=== PATIENT | male | born 1985 | race Caucasian/White ===

== ENCOUNTER 2020-10-05 00:38 | Inpatient (IN) ==
[2020-10-05] MEDS ORDERED: SODIUM CHLORIDE 0.9% 1000ML 1,000 ML IV STA (00:53)
[2020-10-05] MEDS ORDERED: PIPERACILL/TAZOBAC CONSULT ACTIVE PRN (01:05)
[2020-10-05] MEDS ORDERED: PIPERACILLIN/TAZOBACTAM 4.5 GM/120 ML BAG IV ONE (01:05)
[2020-10-05] MEDS ORDERED: ONDANSETRON INJ 2 MG/ML 2 ML VIAL IV STA (01:12)
[2020-10-05] MEDS ORDERED: SODIUM CHLORIDE 0.9% 1000ML 1,000 ML IV ONE (01:12)
--- NOTE | 2020-10-05 01:16 | Emergency Department Note ---
Impression & Plan Colonic diverticular abscess ED Provider Note Pain.NAME: JAMES HODGSON AGE: 35 SEX: M : 1985 ARRIVES VIA: Walk-In INFORMANT: Patient, ED PROVIDER(S): Luis Giordano DO CHIEF COMPLAINT: Abdominal pain HPI: The patient is a 35-year-old male who presented to the emergency department for an evaluation of abdominal pain. The patient has a history of GERD as well as diverticulosis. He was seen in our facility yesterday for similar complaints. At that time he was diagnosed with diverticulitis and was started on Cipro and Flagyl. He is also been taking pain medication. The over read from his preliminary CAT scan revealed signs of a diverticular abscess. They had difficulty contacting the patient and ultimately he was asked to come back to the emergency department. He states that he has had chills but no fevers. H e has worsening pain especially with ambulation as well as palpation over the lower abdomen. The patient has had no diarrhea or rectal bleeding. He has had no vomiting. He has been taking his antibiotic as prescribed. He had an episode of diverticulitis 1 month ago. He states he does not normally have diverticulitis is soon after a bout of diverticulitis so he was concerned about this episode. ROS: See above HPI for pertinent positives & negatives. A total of 10 systems reviewed and were otherwise negative. PAST MEDICAL HISTORY: See Below PAST SURGICAL HISTORY: See Below FAMILY HISTORY: See Below SOCIAL HISTORY: See Below HOME MEDICATIONS: See Below ALLERGIES: See Below VITALS: See Below PHYSICAL EXAMINATION: GENERAL: Patient is awake alert in no acute distress patient is resting comfortably and showing no signs of anxiety EYES: The conjunctivae are clear. The pupils are round and reactive. EARS, NOSE, MOUTH AND THROAT: The nose is without any evidence of any deformity. Mucous membranes are moist. Tongue is midline. NECK: The neck is nontender and supple. RESPIRATORY: Normal respiratory effort is noted there is no evidence of wheezing rhonchi or rales CARDIOVASCULAR: Regular rate and rhythm noted there no murmurs rubs or gallops normal S1 normal S2. GASTROINTESTINAL: The abdomen is mildly distended. There is diffuse tenderness to palpation. There is no specific rigidity or guarding but there is significant tenderness in the left lower quadrant. MUSCULOSKELETAL/EXTREMITIES: There is no evidence of gross deformity full range of motion is noted in the hips and shoulders. SKIN: There is no obvious evidence of any rash. There are no petechiae, pallor or cyanosis noted. NEUROLOGIC: Patient is awake alert and oriented x3. MEDICAL DECISION MAKING: The patient is a 35-year-old male who presented to the emergency department for an evaluation the patient was seen in our facility for similar complaints last evening. At that time his preliminary CAT scan showed only signs of diverticulitis. He was started on Cipro and Flagyl. He was also treated with pain medication in the emergency department. He was feeling somewhat better but had continued pain. He was called to come back to the emergency department because of a diverticular abscess which was noted on over read of the CAT scan of the abdomen and pelvis. The patient was treated with IV fluids and IV pain medication. He was also given IV antibiotics in the emergency department. I discussed the patient's laboratory and radiographic studies with him. His white blood cell count had improved compared to last evening. Given the patient's finding on CAT scan I will discuss his case with the on-call [facility] hospitalist. Triage Nursing notes reviewed. Prior medical records reviewed Vital Signs: reviewed and remarkable for no significant abnormalities Differential diagnosis: Etiologies such as appendicitis, diverticulitis, obstruction, inflammatory bowel disease, renal colic, PUD, biliary pathology, pancreatitis, mesenteric ischemia, aortic pathology, infections, genitourinary, UTI, perforated viscus, as well as others were entertained. ER treatment provided: See below Diagnostics interpreted by me: ECG: none Cardiac Monitoring: An order was placed for continuous cardiac monitoring. The monitor shows a rate of 82 bpm with sinus rhythm. Laboratory studies: As stated above and show below. Imaging studies: See below Consultation(s): Dr. Real was notified about the patient in the emergency department. Past Med/Surg History Medical History Diverticulitis Diverticulosis Social History Smoking Status: Current every day smoker Tobacco Type: Cigarettes Preferred Language: Djiboutian Feels Safe at Home: Yes Allergies Allergies Allergy/AdvReac Type Severity Reaction Status Date / Time bee venom protein (honey bee) Allergy Unknown __ Verified 10/05/20 01:20 Home Meds Home Medications Medication Instructions Recorded Confirmed omeprazole [Prilosec] 20 mg PO DAILY 10/03/20 10/05/20 Previous Rx's Medication Instructions Recorded ciprofloxacin HCl [Cipro] 500 mg PO BID #18 tab 10/03/20 metronidazole 500 mg PO TID #28 tab 10/03/20 Results & Data (ED) Vital Signs Vital Signs - 24 hr 10/05/20 00:48 10/05/20 01:35 10/05/20 01:37 Temperature 36.4 C L Temperature Source Temporal Artery Scan Pulse Rate 97 H 91 H 82 Pulse Rate from SpO2 Sensor 89 84 Respiratory Rate 18 12 24 Respiratory Depth Normal Blood Pressure 138/90 119/80 Blood Pressure Mean 106 93 Pulse Oximetry 97 97 97 Oxygen Delivery Method Room Air Room Air Room Air Sepsis Recent Fever Within 48 Hours No Sepsis New/Unexplained Change in Mental Status N/A Sepsis Action Taken by Nursing No Action Required Home Medications Current Medication List: was personally reviewed by me Laboratory Data Attestation: I reviewed the patient's lab results. Result diagrams: 10/05/20 00:54 10/05/20 00:54 Lab Results 10/05/20 10/05/20 10/05/20 Range/Units 00:54 00:54 01:36 WBC 12.16 H (4.8-10.8) K/uL RBC 5.01 (4.7-6.1) M/uL Hgb 16.1 (14.0-18.0) g/dL Hct 45.5 (42-52) % MCV 90.8 (80-100) fL MCH 32.1 (25-34) pg MCHC 35.4 (32-36) g/dL RDW Std Deviation 46.5 H (36.4-46.3) fL RDW Coeff of Rachel 14.0 (11.5-14.5) % Plt Count 162 (130-400) K/uL MPV 10.8 H (7.4-10.4) fL Immature Gran % (Auto) 0.2 % Neut % (Auto) 74.4 % Lymph % (Auto) 14.3 % [place] % (Auto) 7.8 % Eos % (Auto) 3.1 % Baso % (Auto) 0.2 % Neut # (Auto) 9.04 H (1.4-6.5) K/uL Lymph # (Auto) 1.74 (1.2-3.4) K/uL [place] # (Auto) 0.95 H (0.11-0.59) K/uL Eos # (Auto) 0.38 (0-0.5) K/uL Baso # (Auto) 0.03 (0-0.2) K/uL Immature Gran # (Auto) 0.02 (0.00-0.02) K/uL Sodium 137 (136-145) mmol/L Potassium 3.8 (3.5-5.1) mmol/L Chloride 107 (98-107) mmol/L Carbon Dioxide 24 (21-32) mmol/L Anion Gap 6.0 (3-11) BUN 14 (7-18) mg/dl Creatinine 1.01 (0.6-1.4) mg/dl Est Cr Clr Drug Dosing 124.1 ml/min Est GFR ( Amer) 112.0 ml/min Est GFR (Non-Af Amer) 96.6 ml/min BUN/Creatinine Ratio 13.5 (10-20) Glucose 86 (70-99) mg/dl Calcium 9.3 (8.5-10.1) mg/dl Total Bilirubin 0.7 (0.2-1) mg/dl AST 8 L (15-37) U/L ALT 19 (12-78) U/L Alkaline Phosphatase 72 (45-117) U/L Total Protein 7.5 (6.4-8.2) gm/dl Albumin 3.4 (3.4-5.0) gm/dl Globulin 4.1 H (2.5-4.0) gm/dl Albumin/Globulin Ratio 0.8 L (0.9-2) Lipase 104 (73-393) U/L Urine Color Urine Appearance (Clear) Urine pH (4.5-7.5) Ur Specific Twisp (1.000-1.030) Urine Protein (Negative) Urine Glucose (UA) (Negative) Urine Ketones (Negative) Urine Blood (Negative) Urine Nitrite (Negative) Urine Bilirubin (Negative) Urine Urobilinogen (Negative) Ur Leukocyte Esterase (Negative) Urine WBC (Auto) (0-5) /hpf Urine RBC (Auto) (0-4) /hpf U Hyaline Cast (Auto) (0-5) /lpf U Epithel Cells (Auto) (0-5) /lpf Urine Bacteria (Auto) (Negative) COVID-19 Eval Order Covid19 at [facility] 10/05/20 Range/Units 01:41 WBC (4.8-10.8) K/uL RBC (4.7-6.1) M/uL Hgb (14.0-18.0) g/dL Hct (42-52) % MCV (80-100) fL MCH (25-34) pg MCHC (32-36) g/dL RDW Std Deviation (36.4-46.3) fL RDW Coeff of Rachel (11.5-14.5) % Plt Count (130-400) K/uL MPV (7.4-10.4) fL Immature Gran % (Auto) % Neut % (Auto) % Lymph % (Auto) % [place] % (Auto) % Eos % (Auto) % Baso % (Auto) % Neut # (Auto) (1.4-6.5) K/uL Lymph # (Auto) (1.2-3.4) K/uL [place] # (Auto) (0.11-0.59) K/uL Eos # (Auto) (0-0.5) K/uL Baso # (Auto) (0-0.2) K/uL Immature Gran # (Auto) (0.00-0.02) K/uL Sodium (136-145) mmol/L Potassium (3.5-5.1) mmol/L Chloride (98-107) mmol/L Carbon Dioxide (21-32) mmol/L Anion Gap (3-11) BUN (7-18) mg/dl Creatinine (0.6-1.4) mg/dl Est Cr Clr Drug Dosing ml/min Est GFR ( Amer) ml/min Est GFR (Non-Af Amer) ml/min BUN/Creatinine Ratio (10-20) Glucose (70-99) mg/dl Calcium (8.5-10.1) mg/dl Total Bilirubin (0.2-1) mg/dl AST (15-37) U/L ALT (12-78) U/L Alkaline Phosphatase (45-117) U/L Total Protein (6.4-8.2) gm/dl Albumin (3.4-5.0) gm/dl Globulin (2.5-4.0) gm/dl Albumin/Globulin Ratio (0.9-2) Lipase (73-393) U/L Urine Color Dark Yellow Urine Appearance Clear (Clear) Urine pH 6.5 (4.5-7.5) Ur Specific Twisp 1.023 (1.000-1.030) Urine Protein Trace H (Negative) Urine Glucose (UA) Negative (Negative) Urine Ketones 3+ H (Negative) Urine Blood Negative (Negative) Urine Nitrite Negative (Negative) Urine Bilirubin Negative (Negative) Urine Urobilinogen Negative (Negative) Ur Leukocyte Esterase Trace H (Negative) Urine WBC (Auto) 1-5 (0-5) /hpf Urine RBC (Auto) 0-4 (0-4) /hpf U Hyaline Cast (Auto) 0 (0-5) /lpf U Epithel Cells (Auto) 5-10 H (0-5) /lpf Urine Bacteria (Auto) Negative (Negative) COVID-19 Eval Order Administered Medications Morphine Sulfate (Morphine Sulfate 4 Mg/Ml 1 Ml Carp\Vial) 4 mg IV Q30M PRN PRN Reason: Pain Stop: 10/19/20 01:11 Last Admin: 10/05/20 01:28 Dose: 4 mg Documented by: [id number] Discontinued Medications Sodium Chloride (Nss 1000ml) 1,000 mls @ 999 mls/hr IV .Q1H1M STA Stop: 10/05/20 01:53 Last Admin: 10/05/20 01:26 Dose: 999 mls/hr Documented by: [id number] Piperacillin Sod/Tazobactam Sod (Zosyn) 4.5 gm in 120 mls @ 240 mls/hr IV NOW ONE Stop: 10/05/20 01:34 Last Admin: 10/05/20 01:29 Dose: 240 mls/hr Documented by: [id number] Ondansetron HCl (Ondansetron Inj 2 Mg/Ml 2 Ml Vial) 4 mg IV NOW STA Stop: 10/05/20 01:13 Last Admin: 10/05/20 01:27 Dose: 4 mg Documented by: [id number] Imaging Data Attestation: I personally reviewed and interpreted this imaging study as follows: My Impression: KUB was obtained in the emergency department. My interpretation is nonspecific bowel gas pattern. There was no free air. There was no signs of obstruction. Discharge Plan Visit Data Chief Complaint: Recheck/Abnormal Lab/Rx Stated Complaint: CALLED TO COME BACK FOR ABNORMAL CT ED Provider: Luis Giordano Discharge Problem: Colonic diverticular abscess Patient Disposition: Being Evaluated by Hospitalist Condition: Good Forms Stand Alone Forms: [facility] Prescriptions Prescriptions: No Action omeprazole [Prilosec] 20 mg Capsule,Delayed Release(Dr/Ec) 20 mg PO DAILY RF: 0 metronidazole 500 mg tablet 500 mg PO TID Qty: 28 RF: 0 ciprofloxacin HCl [Cipro] 500 mg tablet 500 mg PO BID Qty: 18 RF: 0 Referrals Referrals: PCP,NO [Primary Care Provider] -
[2020-10-05 01:27] LABS: Basophils # (auto) 0.03 K/uL (0-0.2); Basophils % (auto) 0.2 %; Eosinophils # (auto) 0.38 K/uL (0-0.5); Eosinophils % (auto) 3.1 %; Hematocrit (blood only) 45.5 % (42-52); Hemoglobin 16.1 g/dL (14.0-18.0); Immature Granulocytes # (auto) 0.02 K/uL (0.00-0.02); Immature Granulocytes % (auto) 0.2 %; Lymphocytes # (auto) 1.74 K/uL (1.2-3.4); Lymphocytes % (auto) 14.3 %; Mean Corpuscular Hemoglobin 32.1 pg (25-34); Mean Corpuscular Hgb Conc 35.4 g/dL (32-36); Mean Corpuscular Volume 90.8 fL (80-100); Mean Platelet Volume 10.8 fL (7.4-10.4); Monocytes # (auto) 0.95 K/uL (0.11-0.59); Monocytes % (auto) 7.8 %; Neutrophils # (auto) 9.04 K/uL (1.4-6.5); Neutrophils % (auto) 74.4 %; Platelet Count 162 K/uL (130-400); RDW Standard Deviation 46.5 fL (36.4-46.3); Red Blood Count 5.01 M/uL (4.7-6.1); White Blood Count 12.16 K/uL (4.8-10.8)
[2020-10-05] MEDS: MoRPHine SULFATE 4 MG/ML 1 ML CARP\\VIAL IV PRN ×4 (01:28→07:54)
[2020-10-05 01:45] LABS: Albumin Level 3.4 gm/dl (3.4-5.0); BUN Creatinine Ratio 13.5 (10-20); Calcium 9.3 mg/dl (8.5-10.1); Creatinine Clr Calc Pharmacy 124.1 ml/min; Est GFR (Non-African American) 96.6 ml/min; Potassium 3.8 mmol/L (3.5-5.1)
[2020-10-05 01:48] LABS: Albumin Globulin Ratio 0.8 (0.9-2); Bilirubin,Total 0.7 mg/dl (0.2-1); Globulin 4.1 gm/dl (2.5-4.0); Total Protein 7.5 gm/dl (6.4-8.2)
[2020-10-05 01:52] LABS: Appearance Urine Clear (Clear); Bacteria Urine Automated Negative (Negative); Bilirubin Urine Negative (Negative); Blood Urine Negative (Negative); Cast Urine Automated 0 /lpf (0-5); Color Urine Dark Yellow; Glucose Urine UA Negative (Negative); Ketones Urine 3+ (Negative); Leukocyte Esterase Urine Trace (Negative); Nitrite Urine Negative (Negative); Protein Urine Trace (Negative); RBC Urine Automated 0-4 /hpf (0-4); Specific Gravity Urine 1.023 (1.000-1.030); Urobilinogen Urine Negative (Negative); pH Urine 6.5 (4.5-7.5)
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
--- NOTE | 2020-10-05 04:58 | Surgery Consultation ---
Date of Consultation October 05, 2020 Assessment & Plan (1) Colonic diverticular abscess: Patient has been admitted to the hospitalist service and we will proceed as follows: Provide analgesics Provide antiemetics Provide hydration with IV fluid Patient has been initiated on antibiotics in the form of Zosyn which we will continue Maintain n.p.o. status Explained to the patient be preferable to treat his underlying infection prior to entertaining any surgical intervention as if he required emergent surgical intervention in the setting of a diverticular abscess this would require a colostomy. I also instructed the patient that would be preferable for him to have a colonoscopy prior to undergoing any surgery since his most recent colonoscopy was approximately 10 years ago. The present time the patient does appear stable. We will continue to follow along while he is hospitalized. Dr Christian- agree with above plan. npo except ice for 48 hrs then very slowly advance diet. IV atbx 4 days at least then 2-3 weeks total with po. re CT as outpt unless concerned/ worsening. If abscess enlarges consider IR. May consider Colorectal Surgery eval as outpt with more chronic , complicated disease- possibly Karina Bueno. History of Present Illness Reason for Consultation: Diverticulitis with abscess Attending Physician: Coleman Schuster MD History of Present Illness There is a 35-year-old male who was admitted to the hospital secondary to diverticulitis. Patient notes he began to develop left lower quadrant abdominal pain approximately 3 days ago. Patient presented to the emergency department on 10/03/2020 where patient was noted to have diverticulitis. Patient was discharged home with outpatient therapy however after further review of the CT scan is felt the patient potentially had a diverticular abscess so he was called back to the emergency department for admission. Patient notes that the pain is primarily located in the left lower quadrant of his abdomen without radiation. He denies any fevers, shakes, chills. Patient says that he has had diverticulitis on multiple occasions in the past always treated successfully without surgery. He does note 1 prior abdominal surgery which was an appendectomy. Patient notes that because of his history of diverticulitis he has had a colonoscopy which most recently was about 10 years ago and to the best of his knowledge there is no additional pathology. Patient had labs and imaging since admission which I independently reviewed. He did have a KUB that did not show any evidence of free air. CBC showed his white blood cell count was 12.1. Hemoglobin, hematocrit, and platelet count were all noted to be normal. Chemistry profile did show his sodium, potassium, BUN, and creatinine were all within normal range. Urinalysis was not indicative of infection and a Covid test was noted to be negative. During the patient's a forementioned emergency department visit at which she was discharged home he did have a CT scan of his abdomen which I dependently reviewed. This did show patient had evidence of acute diverticulitis of the sigmoid colon with a 2.5 cm diverticular abscess near the sigmoid colon. There is also concern for suspected enterocolic fistula between the sigmoid colon and a loop of adjacent small bowel. At the time my interview the patient was resting comfortably in bed in no distress. Allergies Allergy/AdvReac Type Severity Reaction Status Date / Time bee venom protein (honey bee) Allergy Unknown __ Verified 10/05/20 01:20 Home Medications Medication Instructions Recorded Confirmed Type ciprofloxacin HCl [Cipro] 500 mg PO BID #18 tab 10/03/20 10/05/20 Rx metronidazole 500 mg PO TID #28 tab 10/03/20 10/05/20 Rx omeprazole [Prilosec] 20 mg PO DAILY 10/03/20 10/05/20 History Patient History Medical History Diverticulitis Diverticulosis Social History Smoking Status: Current every day smoker Tobacco Type: Cigarettes Hx Substance Use: Yes Preferred Language: Togolese Communication Ability: Effective Road Mixer Operator Required: No Beliefs That Will Affect Care: None Current Living Situation: Spouse Current Living Situation Comment: Lives with ex , kids and dog Other Information That Helps Us Care for You: No Feels Safe at Home: Yes Safety Concerns: Feels Safe At This Time Review of Systems Constitutional: no fever and no chills Eyes: no diplopia Ear, Nose, Mouth, Throat: no ear pain Respiratory: no cough and no dyspnea Cardiovascular: no chest pain Gastrointestinal: + abdominal pain; no nausea, no vomiting and no diarrhea/loose stools Genitourinary: no dysuria Musculoskeletal: no back pain Integumentary: no rash Neurologic: no localized weakness Physical Exam Constitutional: well developed and well nourished; no acute distress Eyes: eyes not dysmorphic ENMT: Ears: no hearing impairment Neck: trachea midline Respiratory: normal respiratory effort, lungs clear to auscultation Cardiovascular: Rate/Rhythm: regular rate and regular rhythm Gastrointestinal (Abdomen): Abdomen is soft and nondistended. Bowel sounds are hypoactive. There is no rebound tenderness or guarding the patient does have pain with palpation in the left lower quadrant. Musculoskeletal: No calf tenderness Skin: no rashes, warm and dry Neurologic: moves all extremities Results & Data ([facility]) Vital Signs (Past 12 Hours) Vital Signs Temp Pulse Pulse Resp BP BP Pulse Ox 10/05/20 04:20 36.6 C 82 16 148/92 H 96 10/05/20 04:00 85 21 128/92 95 10/05/20 03:30 82 21 140/82 96 10/05/20 03:01 78 18 148/90 H 97 10/05/20 02:30 75 14 148/90 H 98 10/05/20 02:00 79 24 131/82 97 10/05/20 01:37 82 24 97 10/05/20 01:35 91 H 12 119/80 97 10/05/20 00:48 36.4 C L 97 H 18 138/90 97 PG Care Time/CCT Total # of Minutes Spent Total Time Spent with Patient: Total time spent is greater than 50% in coordination of care (as documented) at patient's floor/unit and/or counseling patient: Coding Level of Care Code 68804 Inpt Consult Level 5 Diagnoses Colonic diverticular abscess K57.20
[2020-10-05] MEDS ORDERED: SODIUM CHLORIDE 0.9% 1000ML 1,000 ML IV SCH (05:00)
[2020-10-05] MEDS ORDERED: MULTI-VITAMIN INFUSION 10 ML, THIAMINE HCL 100 MG, FOLIC ACID 1 MG in SODIUM CHLORIDE 0... IV ONE (05:30)
[2020-10-05] MEDS: FAMOTIDINE 20 MG in SYRINGE 3 ML IV SCH ×2 (05:53→20:14)
[2020-10-05] MEDS: PIPERACILLIN/TAZOBACTAM 3.375 GM in DEXTROSE 5% 100 ML IV SCH ×3 (05:54→22:30)
[2020-10-05 05:55] LABS: BUN Creatinine Ratio 11.6 (10-20); Bilirubin Direct 0.5 mg/dl (0-0.2); Calcium 8.3 mg/dl (8.5-10.1); Creatinine Clr Calc Pharmacy 131.9 ml/min; Est GFR (African American) 120.6 ml/min; Potassium 3.8 mmol/L (3.5-5.1)
[2020-10-05 05:57] LABS: Total Protein 6.8 gm/dl (6.4-8.2)
[2020-10-05 07:05] LABS: Folate (Folic Acid) 17.5 ng/ml (>5.38)
--- NOTE | 2020-10-05 07:23 | XRay Report ---
KUB HISTORY: Acute generalized abdominal pain abd pain COMPARISON: CT abdomen and pelvis 10/03/2020 FINDINGS: Nonobstructive bowel gas pattern. Prominent air-filled loop of small bowel within the left midabdomen measures up to 2.9 cm. No renal calculi. No ureteral calculi. No pneumoperitoneum or pneu matosis. 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 No fracture. IMPRESSION: 1. Nonobstructive bowel gas pattern without pneumoperitoneum. 2. Prominent air-filled loop of small bowel within the left midabdomen may be physiologic or reflect a focal ileus. 3. Avascular necrosis of the femoral heads. ACT 112: Negative or not required by law. The above report was generated using voice recognition software. It may contain grammatical, syntax o r spelling errors. Electronically signed by: Luis Miguel Rivera M.D. 10/05/2020 7:22 AM
[2020-10-05] MEDS ORDERED: ONDANSETRON INJ 2 MG/ML 2 ML VIAL IV PRN (09:46)
[2020-10-05] MEDS: ACETAMINOPHEN 1,000 MG/100 ML VIAL IV SCH ×2 (10:35→17:43)
[2020-10-05] MEDS: MoRPHine SULFATE 2 MG/ML CARP IV SCH ×4 (10:54→16:13)
[2020-10-05] MEDS: THIAMINE HCL 100 MG in SYRINGE 9 ML IV SCH (12:24)
[2020-10-05] MEDS: FOLIC ACID 1 MG in SYRINGE 9.8 ML IV SCH (12:24)
--- NOTE | 2020-10-05 12:50 | Medical Student Progress Note ---
Date of Service October 05, 2020 Assessment & Plan Admission and Anticipated Discharge Date Admission Date: Diverticular abscess - CT showed colonic abscess and fistula - WBC: 18 -> 12, no fever - Started on IV Zosyn, PO when tolerated - Zofran for nausea and morphine for pain - Per surgery recommendation: - IV antibiotics, - NPO 48 hours and then advance diet as tolerated, - Colonoscopy and surgical considerations after resolution of symptoms - On discharge needs counseling for completing antibiotic course, has history of not completing Alcohol abuse - CT showed steatohepatitis - Last drink was 10/02 - AWSS protocol - Thiamine and folate IV - Counseled on alcohol/ tobacco use, not ready to quit Diet: NPO DVT Prophylaxis: none Dispo: Medical floor Supervising Attestation I personally examined the patient and verified all fragoso points of history and exam, discussed case, and agree with decision making with Izabella Bertrand MS2 Pain doing better. Still hurts more with movement, but is feeling better than whenever he first came in. No signs or symptoms of alcohol withdrawal. We discussed current diagnosis as well as concern on building chronic diagnosesshe does note that his father passed not too long ago at 58 of cardiac disease. Vitals noted, in general he is awake and alert pleasant very fatigued no distress. HEENT normocephalic atraumatic mucous membranes moist. Abdomen is surprisingly soft without any significant tenderness, guarding, rebound, rigidity. Neuro without focal deficits. Diverticulitis with perforation and abscesscontinue IV antibiotics, anticipate transition to p.o. antibiotics. Discussed with patient the critical need to complete the course of antibiotics at this time. Extensive diverticulosissurprising given his young age, definitely will need outpatient GI follow-up, probably colonoscopy. Alcohol abuseby history he is about 4 to 5 days after his last drink without signs or symptoms of withdrawal, so fortunately it does not appear that that will be an issue for him. Thiamine/folate NAFLDdiscussed with patient the progression to cirrhosishe has fatty liver with a little bump in transaminases, raising concern that he could be in the percentage of people that does progress to cirrhosis. Discussed the dire need to stop alcohol abuse. Tobacco abuseboth with his worrisome family history, as well as the early atherosclerosis seen as an incidental finding on his CT scan, I discussed with patient the absolute critical need to cease all tobacco, noting that he can already be doing irreparable harm to his wellbeing. Continue current care, serial exams, otherwise as above. Subjective Mr Ahmadi is a 35 year old male with a past medical history significant for recurrent diverticulitis and alcohol abuse who presents for abdominal pain, found to have a colonic abscess and possible fistula on CT. He initially presented to the ED on 10/03 and was discharged with ciprofloxacin and metronidazole. On further evalution of his CT, he was found to have a colonic abscess and fistula. He was admitted on 10/04 and started on IV zosyn. Regarding his history of alcohol use, he drinks 6-8 beers/day and his last drink was 10/02. This morning, he reports pain in the lower abdomen that has not been alleviated with the morphine he was receiving. He has been able to get up and walk around with some pain. He was sitting up in bed with no pain on exam. He denies fevers, chills, and blood in stool. Review of Systems Constitutional: no fever and no chills Respiratory: no dyspnea Cardiovascular: no chest pain Gastrointestinal: + abdominal pain and + nausea; no blood in stools Physical Exam Constitutional: no acute distress Eyes: + anicteric sclerae Respiratory: normal respiratory effort, lungs clear to auscultation Cardiovascular: RRR, no murmur, no edema Extremities: normal capillary refill Gastrointestinal (Abdomen): Inspection/Auscultation: normal bowel sounds; abdomen not distended Percussion/Palpation: + abdomen tender (more tender in RLQ ) and abdomen soft; no guarding, abdomen not rigid and no ascites Musculoskeletal: no cyanosis or clubbing, extremities motor strength 5/5 Skin: no rashes, warm and dry Psychiatric: A+Ox3, euthymic affect Results & Data ([facility]) Vital Signs (Past 12 Hours) Vital Signs Temp Pulse Pulse Resp BP BP Pulse Ox 10/05/20 12:19 36.6 C 69 18 125/69 96 10/05/20 07:26 36.7 C 80 18 114/77 96 10/05/20 04:20 36.6 C 82 16 148/92 H 96 10/05/20 04:00 85 21 128/92 95 10/05/20 03:30 82 21 140/82 96 10/05/20 03:01 78 18 148/90 H 97 10/05/20 02:30 75 14 148/90 H 98 10/05/20 02:00 79 24 131/82 97 10/05/20 01:37 82 24 97 10/05/20 01:35 91 H 12 119/80 97 10/05/20 00:48 36.4 C L 97 H 18 138/90 97
[2020-10-05] MEDS: MoRPHine SULFATE 2 MG/ML CARP IV PRN ×3 (17:38→22:30)
[2020-10-05] MEDS ORDERED: LACTATED RINGER'S 1,000 ML IV SCH (20:00)
[2020-10-05] MEDS: SODIUM CHLORIDE 0.9% 500 ML IV SCH (20:14)
[2020-10-06] MEDS: ACETAMINOPHEN 1,000 MG/100 ML VIAL IV SCH ×2 (01:02→09:46)
[2020-10-06] MEDS: SODIUM CHLORIDE 0.9% 500 ML IV SCH (02:04)
[2020-10-06] MEDS: SODIUM CHLORIDE 0.9% 1000ML 1,000 ML IV SCH ×2 (04:10→08:15)
[2020-10-06] MEDS: PIPERACILLIN/TAZOBACTAM 3.375 GM in DEXTROSE 5% 100 ML IV SCH ×3 (05:10→21:24)
[2020-10-06 06:46] LABS: Hemoglobin 15.2 g/dL (14.0-18.0); Mean Corpuscular Hgb Conc 33.8 g/dL (32-36); Mean Corpuscular Volume 91.8 fL (80-100); Mean Platelet Volume 10.7 fL (7.4-10.4); Platelet Count 194 K/uL (130-400); RDW Coefficient of Variation 13.9 % (11.5-14.5); RDW Standard Deviation 47.2 fL (36.4-46.3); White Blood Count 8.62 K/uL (4.8-10.8)
[2020-10-06 07:18] LABS: BUN Creatinine Ratio 9.7 (10-20); Calcium 8.9 mg/dl (8.5-10.1); Creatinine Clr Calc Pharmacy 137.7 ml/min; Est GFR (Non-African American) 109.6 ml/min; Potassium 3.9 mmol/L (3.5-5.1)
[2020-10-06 07:22] LABS: Albumin Globulin Ratio 0.7 (0.9-2); Bilirubin,Total 0.5 mg/dl (0.2-1); Globulin 4.3 gm/dl (2.5-4.0); Total Protein 7.3 gm/dl (6.4-8.2)
[2020-10-06] MEDS: THIAMINE HCL 100 MG in SYRINGE 9 ML IV SCH (08:14)
[2020-10-06] MEDS: FOLIC ACID 1 MG in SYRINGE 9.8 ML IV SCH (08:14)
[2020-10-06] MEDS: FAMOTIDINE 20 MG in SYRINGE 3 ML IV SCH (08:17)
[2020-10-06] MEDS: NICOTINE 21 MG/24 HR TDSY TD SCH (10:44)
--- NOTE | 2020-10-06 12:09 | Surgery Progress Note ---
Date of Service F/U diverticulitis with abscess, pt is doing better, no significant abdominal pain, no fever, tolerated clear diet, October 06, 2020 Assessment & Plan Admission and Anticipated Discharge Date Admission Date: October 05, 2020 10/06/2020 12:07PM F/U diverticulitis, with abscess, pt is doing better, no abdominal pain, advence diet, possible D/C home tomorrow, will F/U Anticipated date of discharge: 10/07/20 Physical Exam Constitutional: WD/WN, vitals as above well developed and well nourished Eyes: PERRL, conjunctivae normal, anicteric sclerae ENMT: external ear and nose normal, oropharynx normal Neck: trachea midline, no thyromegaly Respiratory: normal respiratory effort, lungs clear to auscultation normal respiratory effort Cardiovascular: RRR, no murmur, no edema Gastrointestinal (Abdomen): normal bowel sounds, soft, nontender, no hepatosplenomegaly Percussion/Palpation: abdomen soft NT, ND Musculoskeletal: no cyanosis or clubbing, extremities motor strength 5/5 Neurologic: awake Psychiatric: Orientation: alert and oriented x 3 Results & Data ([facility]) Vital Signs (Past 12 Hours) Vital Signs Temp Pulse Pulse Resp BP Pulse Ox 10/06/20 11:27 36.8 C 79 18 139/94 92 10/06/20 07:09 36.5 C 74 20 124/75 97 10/06/20 04:06 36.6 C 66 16 129/74 97 10/06/20 02:36 36.8 C 60 16 117/77 97 Laboratory Results Abnormal lab results 10/06/20 10/06/20 Range/Units 06:06 06:06 RDW Std Deviation 47.2 H (36.4-46.3) fL MPV 10.7 H (7.4-10.4) fL BUN/Creatinine Ratio 9.7 L (10-20) AST 11 L (15-37) U/L Albumin 3.0 L (3.4-5.0) gm/dl Globulin 4.3 H (2.5-4.0) gm/dl Albumin/Globulin Ratio 0.7 L (0.9-2)
--- NOTE | 2020-10-06 13:57 | Hospitalist Progress Note ---
Date of Service October 06, 2020 Assessment & Plan (1) Colonic diverticular abscess: Diverticular abscess - CT showed colonic abscess and fistula - WBC: 18 -> 12 -> 8.62, no fever - Continue IV Zosyn - Continue PO as tolerated - Zofran for nausea and morphine for pain - Per surgery recommendation: - IV antibiotics - advance diet as tolerated, - Colonoscopy and surgical considerations after resolution of symptoms - On discharge needs counseling for completing antibiotic course, has history of not completing -Plan for DC tomorrow Alcohol abuse - CT showed steatohepatitis - Last drink was 10/02 - AWSS protocol - Thiamine and folate IV - Counseled on alcohol/ tobacco use, not ready to quit Diet: Regular DVT Prophylaxis: none Dispo: Medical floor Code: Full Code (2) Abdominal pain, LLQ (left lower quadrant): Admission and Anticipated Discharge Date Admission Date: October 05, 2020 Supervising Physician Co-Signing Physician Notes I personally examined the patient and verified all fragoso points of history and exam, discussed case, and agree with decision making with Dr Collier. Pain better. No problems. Understands need for ongoing treatment. Updated on plan. He is very strongly desirous of quitting drinking and quitting tobacco. We talked about this at length. Vitals noted, in general he is awake and alert pleasant very fatigued no distress. HEENT normocephalic atraumatic mucous membranes moist. Abdomen is still surprisingly soft without any significant tenderness, guarding, rebound, rigidity. Neuro without focal deficits. Diverticulitis with perforation and abscesscontinue IV antibiotics, today advance diet and increase activityif he is doing wellanticipate home on p.o. antibiotics tomorrow. Extensive diverticulosissurprising given his young age, definitely will need outpatient GI follow-up, almost certainly colonoscopy. Alcohol abusecontinue thiamine and folate, fortunately no withdrawal. Discussed cessation again. NAFLDdiscussed with patient the progression to cirrhosishe has fatty liver with a little bump in transaminases, raising concern that he could be in the percentage of people that does progress to cirrhosis. He wants to stop drinking Tobacco abuseexpresses desire to quit. Wonders about what we can do medically to helpdiscussed the limitations of nicotine replacement, as well as possible benefits from augmenting dopamine with bupropion, versus receptor agonist antagonist with Chantix. He seemed somewhat interested in both, but once we got to practical realities, he does not have insurance, and on a [place] check on good Rx Chantix was about $450, Wellbutrin about $15. After discussion of risks and benefitswe will start Wellbutrin. Continue current care, serial exams, otherwise as above. Hopefully home tomorrow Subjective Patient seen this morning at bedside. He reported feeling overall well and felt ready to try oral nutrition. Denies abdominal pain, nausea, vomiting, fever, chills. Initially pushing to go home but on further discussion, we explained why we think it is a good idea to remain here until full 48 hours of antibiotics have been completed and watch him into tomorrow morning. At this point patient agrees. Review of Systems Review of Systems: All systems reviewed & are unremarkable except as noted in Subjective Physical Exam Constitutional: no acute distress Eyes: + anicteric sclerae Respiratory: normal respiratory effort, lungs clear to auscultation Cardiovascular: RRR, no murmur, no edema Extremities: normal capillary refill Gastrointestinal (Abdomen): Inspection/Auscultation: normal bowel sounds; abdomen not distended Percussion/Palpation: abdomen soft; abdomen nontender, no guarding, abdomen not rigid and no ascites Musculoskeletal: no cyanosis or clubbing, extremities motor strength 5/5 Skin: no rashes, warm and dry Psychiatric: A+Ox3, euthymic affect Results & Data Results & Data ([facility]) Vital Signs (Past 12 Hours) Vital Signs Temp Pulse Pulse Resp BP Pulse Ox 10/06/20 11:27 36.8 C 79 18 139/94 92 10/06/20 07:09 36.5 C 74 20 124/75 97 10/06/20 04:06 36.6 C 66 16 129/74 97 10/06/20 02:36 36.8 C 60 16 117/77 97 Resident Activity Tracking Resident Involvement: Resident Care Provided Care Provided: Adult Hospital Medicine
--- NOTE | 2020-10-06 15:44 | Billing Data ---
Date of Service October 06, 2020 Coding Level of Care Code 40159 Subseq Hosp Care Lvl 3
[2020-10-06] MEDS: buPROPion SR 150 MG TABCR PO SCH (21:25)
--- NOTE | 2020-10-07 01:08 | Billing Data ---
Date of Service October 07, 2020 Coding Level of Care Code 47565 Initial Inpt Care Lvl 3
[2020-10-07] MEDS: PIPERACILLIN/TAZOBACTAM 3.375 GM in DEXTROSE 5% 100 ML IV SCH (05:20)
[2020-10-07 06:52] LABS: Basophils # (auto) 0.06 K/uL (0-0.2); Basophils % (auto) 0.6 %; Eosinophils # (auto) 0.29 K/uL (0-0.5); Eosinophils % (auto) 2.7 %; Hematocrit (blood only) 47.6 % (42-52); Hemoglobin 16.5 g/dL (14.0-18.0); Immature Granulocytes # (auto) 0.02 K/uL (0.00-0.02); Immature Granulocytes % (auto) 0.2 %; Lymphocytes # (auto) 1.74 K/uL (1.2-3.4); Lymphocytes % (auto) 16.1 %; Mean Corpuscular Hemoglobin 31.3 pg (25-34); Mean Corpuscular Hgb Conc 34.7 g/dL (32-36); Mean Corpuscular Volume 90.2 fL (80-100); Mean Platelet Volume 10.5 fL (7.4-10.4); Monocytes # (auto) 0.87 K/uL (0.11-0.59); Neutrophils # (auto) 7.83 K/uL (1.4-6.5); Neutrophils % (auto) 72.4 %; Platelet Count 225 K/uL (130-400); RDW Coefficient of Variation 13.7 % (11.5-14.5); RDW Standard Deviation 45.2 fL (36.4-46.3); Red Blood Count 5.28 M/uL (4.7-6.1); White Blood Count 10.81 K/uL (4.8-10.8)
[2020-10-07 07:15] LABS: BUN Creatinine Ratio 11.9 (10-20); Calcium 9.5 mg/dl (8.5-10.1); Creatinine Clr Calc Pharmacy 133.3 ml/min; Est GFR (African American) 122.1 ml/min; Est GFR (Non-African American) 105.4 ml/min; Potassium 3.9 mmol/L (3.5-5.1)
[2020-10-07] MEDS: NICOTINE 21 MG/24 HR TDSY TD SCH (08:15)
[2020-10-07] MEDS: buPROPion SR 150 MG TABCR PO SCH (08:15)
[2020-10-07] MEDS ORDERED: FOLIC ACID 1 MG TAB PO SCH (09:00)
[2020-10-07] MEDS ORDERED: THIAMINE HCL 100 MG TAB PO SCH (09:00)
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
--- NOTE | 2020-10-07 17:58 | Billing Data ---
Date of Service October 07, 2020 Coding Level of Care Code D/C Day Management <30 mins
== END 2020-10-07 10:25 | disposition home or self-care (01) | DRG 392 ==
LOC: ED 00:38 → SUATTDRO 02:56 → 3W 02:56
DX: M87.052 Idiopathic aseptic necrosis of left femur; K63.2 Fistula of intestine; K75.81 Nonalcoholic steatohepatitis (NASH); F17.210 Nicotine dependence, cigarettes, uncomplicated; K57.90 Diverticulosis of intestine, part unspecified, without perforation or abscess without bleeding; K21.9 Gastro-esophageal reflux disease without esophagitis; K57.20 Diverticulitis of large intestine with perforation and abscess without bleeding